=== PATIENT | male | born 1960 | race Caucasian/White ===

== ENCOUNTER 2018-10-03 07:06 | Inpatient (IN) | payer OTHER ==
[~2018-10-03] VITALS: Ht 177.8 cm; Wt 95.5 kg
[~2018-10-03 07:06] MED LIST: ALBU8.5H8 IH; ASPI-4 PO; BUDE10.2 INH; LISI10TA4 PO; METO100T7 PO; MIRT45TA83 PO; PRIM50TA PO; SIMV40TA4 PO
[2018-10-03] MEDS ORDERED: albuterol 2.5 MG/3 ML nebule NEB ONE (07:30)
[2018-10-03] MEDS ORDERED: ipratropium/albuterol 3ml nebule NEB ONE (07:30)
--- NOTE | 2018-10-03 07:39 | NUR ---
ekg called for x 2
--- NOTE | 2018-10-03 07:39 | NUR ---
rt at bedside
[2018-10-03 08:03] LABS: BASOPHILS % (AUTO) 0.4 % (0-1); EOSINOPHILS % (AUTO) 0.1 % (0-6); HEMATOCRIT 42.4 % (42.0-52.0); HEMOGLOBIN 14.6 g/dl (14.0-17.9); LYMPHOCYTES # (AUTO) 0.5 X10'3 (1.1-4.8); LYMPHOCYTES % (AUTO) 5.2 % (21-51); MEAN CORPUSCULAR HEMOGLOBIN 32.7 PG (27.0-31.0); MEAN CORPUSCULAR HGB CONC 34.5 g/dL (33.0-36.5); MEAN CORPUSCULAR VOLUME 94.8 FL (78-98); MONOCYTES # (AUTO) 0.5 X10'3 (0-0.9); MONOCYTES % (AUTO) 5.7 % (2-12); NEUTROPHILS # (AUTO) 8.2 X10'3 (1.8-7.7); NEUTROPHILS % (AUTO) 88.6 % (42-75); PLATELET COUNT 242 X10'3 (140-440); RED BLOOD COUNT 4.47 X10'6 (4.70-6.10); RED CELL DISTRIBUTION WIDTH 13.2 % (11.5-14.5); WHITE BLOOD COUNT 9.3 X10'3 (4.5-11.0)
--- NOTE | 2018-10-03 08:15 | NUR ---
ekg requested, tech at bedside
[2018-10-03 08:17] LABS: ALANINE AMINOTRANSFERASE 44 U/L (12-78); ALBUMIN 3.9 G/DL (3.4-5.0); ALBUMIN/GLOBULIN RATIO 1.1 (1.1-1.5); ALKALINE PHOSPHATASE 78 IU/L (46-116); ANION GAP 11 (8-16); ASPARTATE AMINO TRANSFERASE 33 U/L (10-37); BILIRUBIN,TOTAL 0.5 MG/DL (0.1-1.0); BLOOD UREA NITROGEN 7 MG/DL (7-18); BUN/CREATININE RATIO 9.2 (5.4-32.0); CALCIUM 8.2 MG/DL (8.5-10.1); CHLORIDE 86 MMOL/L (99-107); CREATININE 0.76 MG/DL (0.60-1.10); GLUCOSE 84 MG/DL (70-104); POTASSIUM 4.8 MMOL/L (3.5-5.1); TOTAL CARBON DIOXIDE 21.7 MMOL/L (24-32); TOTAL PROTEIN 7.6 G/DL (6.4-8.2); eGFR > 90 ML/MIN
[2018-10-03 08:20] LABS: SODIUM 119 MMOL/L (135-145)
--- NOTE | 2018-10-03 08:39 | NUR ---
BELONGINGS LIST COMPLETE
[2018-10-03] MEDS ORDERED: BUDE10.2 INH (08:45)
[2018-10-03] MEDS ORDERED: LORazepam 2 mg/ml vial IV PRN (09:00)
[2018-10-03] MEDS ORDERED: MAGNESIUM IV SCH (09:00)
[2018-10-03] MEDS ORDERED: potassium Cl 20 mEq SR tablet PO PRN ×2 (09:00)
[2018-10-03] MEDS ORDERED: magnesium 2GM in 50ml NS 50 ML IV PRN (09:00)
[2018-10-03] MEDS ORDERED: THIAMINE IV SCH (09:00)
[2018-10-03] MEDS ORDERED: magnesium Cl slow-release 64mg tablet PO PRN (09:00)
[2018-10-03] MEDS ORDERED: potassium CL 10mEq/100ml bag 100 ML IV PRN ×2 (09:00)
[2018-10-03] MEDS ORDERED: ondansetron/PF 4mg/2ml inj IV PRN (09:00)
[2018-10-03] MEDS ORDERED: magnesium 4gm in 100ml NS 100 ML IV PRN (09:00)
[2018-10-03] MEDS ORDERED: NORMAL SALINE IV SCH (09:00)
[2018-10-03] MEDS ORDERED: METO-384 PO (09:09)
[2018-10-03] MEDS: lisinopril 10 MG tablet PO SCH (10:27)
[2018-10-03] MEDS: aspirin 325mg tablet PO SCH (10:27)
[2018-10-03] MEDS: normal saline 1000ml 1,000 ML IV SCH ×2 (10:36→19:21)
[2018-10-03] MEDS: morphine 2 MG/ML inj. syringe IV PRN ×3 (10:37→20:10)
[2018-10-03] MEDS: ESOMEPRAZOLE 40 MG VIAL IV SCH (10:49)
[2018-10-03] MEDS: MVI, adult No.4 with vit. K 10 ML in dextrose 5% water 500ml 490 ML IV SCH ×2 (10:49)
[2018-10-03] MEDS: primidone 50mg tablet PO SCH (10:59)
[2018-10-03 12:30] VITALS: BP 120/85
[2018-10-03] MEDS: K and/or MAG REPLACEMENT MC SCH (12:37)
[2018-10-03] MEDS ORDERED: pneumococcal 23-VAL P-sac vacc 25 mcg/0.5ml vial IMVAC ONE (14:15)
[2018-10-03 18:00] VITALS: BP 111/83
--- NOTE | 2018-10-03 18:55 | NUR ---
Problems reprioritized. Patient report given, questions answered & plan of care reviewed with RIMMA Escobedo.
--- NOTE | 2018-10-03 18:57 | NUR ---
Patient in room ORTHO 4023. I have received report from RIMMA Teixeira and had the opportunity to ask questions and assume patient care. Patient is A&O x3, appropriate with splint on right lower leg/ankle. Patient is to have surgery tomorrow afternoon with Dr. Garcia, I will continue to monitor.
[2018-10-03] MEDS: mirtazapine 15mg tablet PO SCH (20:08)
[2018-10-03] MEDS: atorvastatin 20mg tablet PO SCH (20:08)
[2018-10-03 22:00] VITALS: BP 127/79
[2018-10-04] VITALS (22 sets, daily range): BP systolic 101–156; BP diastolic 52–98
[2018-10-04] MEDS: morphine 2 MG/ML inj. syringe IV PRN (03:08)
[2018-10-04] MEDS: normal saline 1000ml 1,000 ML IV SCH ×2 (04:12→19:28)
[2018-10-04] MEDS: ipratropium/albuterol 3ml nebule NEB PRN ×2 (04:48→14:16)
[2018-10-04 05:55] LABS: ALBUMIN 3.3 G/DL (3.4-5.0); ANION GAP 8 (8-16); BLOOD UREA NITROGEN 5 MG/DL (7-18); BUN/CREATININE RATIO 7.7 (5.4-32.0); CALCIUM 8.1 MG/DL (8.5-10.1); CHLORIDE 93 MMOL/L (99-107); CREATININE 0.65 MG/DL (0.60-1.10); GLUCOSE 96 MG/DL (70-104); MAGNESIUM 2.1 MG/DL (1.5-2.4); POTASSIUM 4.3 MMOL/L (3.5-5.1); SODIUM 127 MMOL/L (135-145); TOTAL CARBON DIOXIDE 26.5 MMOL/L (24-32); eGFR > 90 ML/MIN
[2018-10-04 05:59] LABS: BASOPHILS % (AUTO) 0.4 % (0-1); EOSINOPHILS % (AUTO) 0.4 % (0-6); HEMATOCRIT 40.2 % (42.0-52.0); HEMOGLOBIN 13.8 g/dl (14.0-17.9); LYMPHOCYTES # (AUTO) 0.8 X10'3 (1.1-4.8); LYMPHOCYTES % (AUTO) 12.8 % (21-51); MEAN CORPUSCULAR HEMOGLOBIN 32.6 PG (27.0-31.0); MEAN CORPUSCULAR HGB CONC 34.3 g/dL (33.0-36.5); MEAN PLATELET VOLUME 7.2 FL (7.4-10.4); MONOCYTES # (AUTO) 0.5 X10'3 (0-0.9); MONOCYTES % (AUTO) 8.7 % (2-12); NEUTROPHILS # (AUTO) 4.9 X10'3 (1.8-7.7); NEUTROPHILS % (AUTO) 77.7 % (42-75); PLATELET COUNT 227 X10'3 (140-440); RED BLOOD COUNT 4.23 X10'6 (4.70-6.10); RED CELL DISTRIBUTION WIDTH 13.4 % (11.5-14.5); WHITE BLOOD COUNT 6.3 X10'3 (4.5-11.0)
--- NOTE | 2018-10-04 06:36 | NUR ---
Problems reprioritized. Patient report given, questions answered & plan of care reviewed with RIMMA Amanda.
[2018-10-04] MEDS: aspirin 325mg tablet PO SCH (08:00)
[2018-10-04] MEDS: metoprolol succinate 25mg (24-HOUR) SR. Tablet PO SCH (10:07)
[2018-10-04] MEDS: MVI, adult No.4 with vit. K 10 ML in dextrose 5% water 500ml 490 ML IV SCH ×2 (10:07)
[2018-10-04] MEDS: lisinopril 10 MG tablet PO SCH (10:08)
[2018-10-04] MEDS ORDERED: ringers solution, lacted 1,000 ML IV SCH (10:12)
[2018-10-04] MEDS ORDERED: proCHLORperazine 10 MG/2 ml inj IV PRN (10:15)
[2018-10-04] MEDS ORDERED: meperidine/PF 25mg/ml syringe IV PRN ×3 (10:15)
[2018-10-04] MEDS ORDERED: ondansetron/PF 4mg/2ml inj IV PRN (10:15)
[2018-10-04] MEDS ORDERED: morphine 4 MG/ML inj SYRINge IV PRN ×2 (10:15)
[2018-10-04] MEDS: primidone 50mg tablet PO SCH (10:18)
[2018-10-04] MEDS: ESOMEPRAZOLE 40 MG VIAL IV SCH (10:19)
[2018-10-04] MEDS ORDERED: ceFAZolin 1000mg inj ONE (10:41)
[2018-10-04] MEDS ORDERED: ipratropium/albuterol 3ml nebule IH ONE (11:05)
[2018-10-04] MEDS ORDERED: ePHEDrine 50MG/ML INJ. ONE (11:12)
[2018-10-04] MEDS ORDERED: MIDAZolam 5mg/5ml vial ONE (11:25)
[2018-10-04] MEDS ORDERED: fentaNYL/PF 50MCG/1 ML 2ML syringe ONE (11:25)
[2018-10-04] MEDS ORDERED: ceFAZolin 1GM/D5W- ADD-VANTAGE 50 ML IV ONE (12:00)
--- NOTE | 2018-10-04 12:58 | NUR ---
Received from OR via , accompanied by DR. CANDELARIO, Anesthesiologist and report given by Anesthesiolgist. S/P ORIF RT. ANKLE W/SPINAL ANESTHESIA & POPLITEAL BLOCK. PT. PT. A X O X 4. APPROP. RESPS. EVEN & UNLABORED. SL. EXP. WHEEZE PRESENT. PT. DENIES SOB. DR. CANDELARIO AWARE @ BEDSIDE. PT. DENIES PAIN. RT. LOWER LEG SPLINT IN TACT. RT. TOES PINK, WARM W/ GOOD CAP REFILL. RT. ARM IV PATENT. PT. REASSURED.
--- NOTE | 2018-10-04 18:34 | NUR ---
Problems reprioritized. Patient report given, questions answered & plan of care reviewed with Fanny Lares
[2018-10-04] MEDS: atorvastatin 20mg tablet PO SCH (21:05)
[2018-10-04] MEDS: mirtazapine 15mg tablet PO SCH (21:05)
[2018-10-04] MEDS: ceFAZolin 1GM/D5W- ADD-VANTAGE 50 ML IV SCH (23:58)
[2018-10-05] MEDS ORDERED: ceFAZolin 1GM/D5W- ADD-VANTAGE 50 ML IV SCH
[2018-10-05] MEDS: normal saline 1000ml 1,000 ML IV SCH ×3 (01:00→21:00)
[2018-10-05 02:00] VITALS: BP 94/61
[2018-10-05 05:23] LABS: ALBUMIN 2.7 G/DL (3.4-5.0); ANION GAP 4 (8-16); BLOOD UREA NITROGEN 4 MG/DL (7-18); BUN/CREATININE RATIO 5.8 (5.4-32.0); CALCIUM 7.8 MG/DL (8.5-10.1); CHLORIDE 100 MMOL/L (99-107); CREATININE 0.69 MG/DL (0.60-1.10); GLUCOSE 104 MG/DL (70-104); MAGNESIUM 1.8 MG/DL (1.5-2.4); POTASSIUM 4.8 MMOL/L (3.5-5.1); SODIUM 132 MMOL/L (135-145); TOTAL CARBON DIOXIDE 28.4 MMOL/L (24-32); eGFR > 90 ML/MIN
[2018-10-05] MEDS: ipratropium/albuterol 3ml nebule NEB PRN ×2 (05:27→14:14)
[2018-10-05 05:32] LABS: BASOPHILS % (AUTO) 0.3 % (0-1); EOSINOPHILS % (AUTO) 0.1 % (0-6); HEMATOCRIT 37.4 % (42.0-52.0); HEMOGLOBIN 12.8 g/dl (14.0-17.9); LYMPHOCYTES # (AUTO) 0.6 X10'3 (1.1-4.8); LYMPHOCYTES % (AUTO) 8.6 % (21-51); MEAN CORPUSCULAR HEMOGLOBIN 32.8 PG (27.0-31.0); MEAN CORPUSCULAR HGB CONC 34.2 g/dL (33.0-36.5); MEAN CORPUSCULAR VOLUME 95.7 FL (78-98); MEAN PLATELET VOLUME 7.3 FL (7.4-10.4); MONOCYTES # (AUTO) 0.7 X10'3 (0-0.9); MONOCYTES % (AUTO) 9.6 % (2-12); NEUTROPHILS # (AUTO) 5.6 X10'3 (1.8-7.7); NEUTROPHILS % (AUTO) 81.4 % (42-75); PLATELET COUNT 182 X10'3 (140-440); RED BLOOD COUNT 3.91 X10'6 (4.70-6.10); RED CELL DISTRIBUTION WIDTH 13.7 % (11.5-14.5); WHITE BLOOD COUNT 6.9 X10'3 (4.5-11.0)
[2018-10-05 06:10] VITALS: BP 157/97
--- NOTE | 2018-10-05 06:21 | NUR ---
Problems reprioritized. Patient report given, questions answered & plan of care reviewed with RIMMA Rivers.
--- NOTE | 2018-10-05 06:26 | NUR ---
Patient in room ORTHO 4023. I have received report from Tash SHANKS and had the opportunity to ask questions and assume patient care.
[2018-10-05] MEDS: K and/or MAG REPLACEMENT MC SCH (08:00)
[2018-10-05] MEDS: primidone 50mg tablet PO SCH (08:05)
[2018-10-05] MEDS: ceFAZolin 1GM/D5W- ADD-VANTAGE 50 ML IV SCH (08:05)
[2018-10-05] MEDS: aspirin 325mg tablet PO SCH (08:05)
[2018-10-05] MEDS: lisinopril 10 MG tablet PO SCH (08:06)
[2018-10-05] MEDS: multivitamins, therapeutics tablet PO SCH (08:06)
[2018-10-05] MEDS: metoprolol succinate 25mg (24-HOUR) SR. Tablet PO SCH (08:06)
[2018-10-05] MEDS: thiamine 100mg tablet PO SCH (08:06)
[2018-10-05] MEDS: pantoprazole 40mg Tablet.DR PO SCH (08:07)
[2018-10-05 10:00] VITALS: BP 121/68
[2018-10-05] MEDS ORDERED: LIDOcaine 2% (20mg/ml) 5ml vial ONE (10:38)
[2018-10-05] MEDS ORDERED: ondansetron/PF 4mg/2ml inj ONE (10:38)
[2018-10-05] MEDS ORDERED: glycopyrrolate 0.2mg/ml inj ONE (10:38)
[2018-10-05] MEDS ORDERED: rocuronium 10mg/ml inj IV ONE (10:38)
[2018-10-05] MEDS ORDERED: neostigmine methylsulfate 1 MG/ML 10ml vial ONE (10:38)
[2018-10-05] MEDS ORDERED: propofol inj 20 ML IV ONE (10:38)
[2018-10-05] MEDS ORDERED: dexamethasone sod phosphate 4mg/ml inj. ONE (10:39)
[2018-10-05] MEDS ORDERED: fentaNYL/PF 50MCG/1 ML 2ML syringe ONE (10:56)
[2018-10-05] MEDS ORDERED: midazolam 2 mg/2 ml injection ONE (10:56)
[2018-10-05] MEDS ORDERED: heparin 1,000unit/ml 10ml vial 10 ML ONE (11:24)
[2018-10-05] MEDS ORDERED: ceFAZolin 1000mg inj ONE ×2 (11:28)
[2018-10-05 18:00] VITALS: BP 125/84
--- NOTE | 2018-10-05 18:28 | NUR ---
Patient report given to Fanny Peck RN
[2018-10-05] MEDS: atorvastatin 20mg tablet PO SCH (20:26)
[2018-10-05] MEDS: mirtazapine 15mg tablet PO SCH (20:26)
[2018-10-05] MEDS: HYDROcodone/acetaminophen 10/325mg tab PO PRN (21:55)
[2018-10-05 22:18] VITALS: BP 128/85
[2018-10-06] MEDS: normal saline 1000ml 1,000 ML IV SCH ×2 (00:37→10:51)
[2018-10-06] MEDS: HYDROcodone/acetaminophen 10/325mg tab PO PRN ×3 (05:24→21:41)
[2018-10-06] MEDS: ipratropium/albuterol 3ml nebule NEB PRN ×3 (05:34→20:51)
--- NOTE | 2018-10-06 06:04 | NUR ---
Problems reprioritized. Patient report given, questions answered & plan of care reviewed with RIMMA Rivers.
[2018-10-06 06:10] VITALS: BP 123/78
[2018-10-06 06:27] LABS: ALBUMIN 2.6 G/DL (3.4-5.0); ANION GAP 2 (8-16); BLOOD UREA NITROGEN 5 MG/DL (7-18); BUN/CREATININE RATIO 5.7 (5.4-32.0); CALCIUM 8.1 MG/DL (8.5-10.1); CHLORIDE 102 MMOL/L (99-107); CREATININE 0.88 MG/DL (0.60-1.10); GLUCOSE 91 MG/DL (70-104); MAGNESIUM 1.5 MG/DL (1.5-2.4); POTASSIUM 4.4 MMOL/L (3.5-5.1); SODIUM 136 MMOL/L (135-145); eGFR 89 ML/MIN
[2018-10-06 06:30] LABS: BASOPHILS % (AUTO) 0.6 % (0-1); EOSINOPHILS # (AUTO) 0.1 X10'3 (0-0.9); EOSINOPHILS % (AUTO) 2.3 % (0-6); HEMATOCRIT 36.5 % (42.0-52.0); HEMOGLOBIN 12.3 g/dl (14.0-17.9); LYMPHOCYTES % (AUTO) 16.2 % (21-51); MEAN CORPUSCULAR HEMOGLOBIN 32.9 PG (27.0-31.0); MEAN CORPUSCULAR HGB CONC 33.6 g/dL (33.0-36.5); MEAN CORPUSCULAR VOLUME 97.9 FL (78-98); MEAN PLATELET VOLUME 7.2 FL (7.4-10.4); MONOCYTES # (AUTO) 0.7 X10'3 (0-0.9); MONOCYTES % (AUTO) 10.5 % (2-12); NEUTROPHILS # (AUTO) 4.5 X10'3 (1.8-7.7); NEUTROPHILS % (AUTO) 70.4 % (42-75); PLATELET COUNT 165 X10'3 (140-440); RED BLOOD COUNT 3.73 X10'6 (4.70-6.10); RED CELL DISTRIBUTION WIDTH 13.6 % (11.5-14.5); WHITE BLOOD COUNT 6.4 X10'3 (4.5-11.0)
--- NOTE | 2018-10-06 06:30 | NUR ---
Patient in room ORTHO 4023. I have received report from Fanny SHANKS and had the opportunity to ask questions and assume patient care.
[2018-10-06] MEDS: K and/or MAG REPLACEMENT MC SCH (08:00)
[2018-10-06] MEDS: lisinopril 10 MG tablet PO SCH (08:10)
[2018-10-06] MEDS: aspirin 325mg tablet PO SCH (08:10)
[2018-10-06] MEDS: enoxaparin 40mg/0.4ml syringe SUBCUT SCH (08:10)
[2018-10-06] MEDS: multivitamins, therapeutics tablet PO SCH (08:11)
[2018-10-06] MEDS: pantoprazole 40mg Tablet.DR PO SCH (08:11)
[2018-10-06] MEDS: metoprolol succinate 25mg (24-HOUR) SR. Tablet PO SCH (08:11)
[2018-10-06] MEDS: primidone 50mg tablet PO SCH (08:11)
[2018-10-06] MEDS: thiamine 100mg tablet PO SCH (08:11)
[2018-10-06 10:00] VITALS: BP 158/86
[2018-10-06 18:00] VITALS: BP 187/89
--- NOTE | 2018-10-06 18:34 | NUR ---
I gave patient report to Fanny Peck RN
[2018-10-06] MEDS: atorvastatin 20mg tablet PO SCH (20:32)
[2018-10-06] MEDS: mirtazapine 15mg tablet PO SCH (20:32)
[2018-10-06 22:08] VITALS: BP 121/84
[2018-10-07] MEDS: normal saline 1000ml 1,000 ML IV SCH (03:36)
[2018-10-07 06:19] LABS: ALBUMIN 2.5 G/DL (3.4-5.0); ANION GAP 5 (8-16); BLOOD UREA NITROGEN 8 MG/DL (7-18); BUN/CREATININE RATIO 11.9 (5.4-32.0); CALCIUM 8.2 MG/DL (8.5-10.1); CHLORIDE 100 MMOL/L (99-107); CREATININE 0.67 MG/DL (0.60-1.10); GLUCOSE 92 MG/DL (70-104); MAGNESIUM 1.4 MG/DL (1.5-2.4); POTASSIUM 4.2 MMOL/L (3.5-5.1); SODIUM 137 MMOL/L (135-145); TOTAL CARBON DIOXIDE 31.9 MMOL/L (24-32); eGFR > 90 ML/MIN
--- NOTE | 2018-10-07 06:34 | NUR ---
Problems reprioritized. Patient report given, questions answered & plan of care reviewed with RIMMA Amanda.
[2018-10-07 07:10] LABS: BASOPHILS % (AUTO) 0.7 % (0-1); EOSINOPHILS # (AUTO) 0.2 X10'3 (0-0.9); EOSINOPHILS % (AUTO) 4.7 % (0-6); HEMATOCRIT 36.2 % (42.0-52.0); HEMOGLOBIN 12.3 g/dl (14.0-17.9); LYMPHOCYTES # (AUTO) 0.8 X10'3 (1.1-4.8); LYMPHOCYTES % (AUTO) 15.4 % (21-51); MEAN CORPUSCULAR HEMOGLOBIN 32.8 PG (27.0-31.0); MEAN CORPUSCULAR HGB CONC 33.9 g/dL (33.0-36.5); MEAN CORPUSCULAR VOLUME 96.6 FL (78-98); MEAN PLATELET VOLUME 7.3 FL (7.4-10.4); MONOCYTES # (AUTO) 0.6 X10'3 (0-0.9); MONOCYTES % (AUTO) 11.9 % (2-12); NEUTROPHILS # (AUTO) 3.6 X10'3 (1.8-7.7); NEUTROPHILS % (AUTO) 67.3 % (42-75); PLATELET COUNT 184 X10'3 (140-440); RED BLOOD COUNT 3.74 X10'6 (4.70-6.10); RED CELL DISTRIBUTION WIDTH 13.4 % (11.5-14.5); WHITE BLOOD COUNT 5.3 X10'3 (4.5-11.0)
[2018-10-07 08:00] VITALS: BP 113/76
[2018-10-07] MEDS: K and/or MAG REPLACEMENT MC SCH (08:00)
[2018-10-07] MEDS: aspirin 325mg tablet PO SCH (09:48)
[2018-10-07] MEDS: enoxaparin 40mg/0.4ml syringe SUBCUT SCH (09:48)
[2018-10-07] MEDS: multivitamins, therapeutics tablet PO SCH (09:48)
[2018-10-07] MEDS: pantoprazole 40mg Tablet.DR PO SCH (09:48)
[2018-10-07] MEDS: metoprolol succinate 25mg (24-HOUR) SR. Tablet PO SCH (09:49)
[2018-10-07] MEDS: HYDROcodone/acetaminophen 10/325mg tab PO PRN ×2 (09:49→20:34)
[2018-10-07] MEDS: primidone 50mg tablet PO SCH (09:49)
[2018-10-07] MEDS: thiamine 100mg tablet PO SCH (09:49)
[2018-10-07] MEDS: lisinopril 10 MG tablet PO SCH (09:55)
[2018-10-07 10:00] VITALS: BP 132/91
[2018-10-07] MEDS: ipratropium/albuterol 3ml nebule NEB PRN (17:22)
--- NOTE | 2018-10-07 18:24 | NUR ---
Problems reprioritized. Patient report given, questions answered & plan of care reviewed with Neto SHANKS.
[2018-10-07 19:00] VITALS: BP 145/105
[2018-10-07] MEDS: mirtazapine 15mg tablet PO SCH (20:33)
[2018-10-07] MEDS: atorvastatin 20mg tablet PO SCH (20:35)
[2018-10-07 23:00] VITALS: BP 122/82
[2018-10-08 06:00] VITALS: BP 120/83
[2018-10-08 07:13] LABS: BASOPHILS % (AUTO) 0.3 % (0-1); EOSINOPHILS # (AUTO) 0.3 X10'3 (0-0.9); EOSINOPHILS % (AUTO) 4.9 % (0-6); HEMATOCRIT 36.9 % (42.0-52.0); HEMOGLOBIN 12.6 g/dl (14.0-17.9); LYMPHOCYTES # (AUTO) 0.8 X10'3 (1.1-4.8); LYMPHOCYTES % (AUTO) 14.2 % (21-51); MEAN CORPUSCULAR HEMOGLOBIN 32.9 PG (27.0-31.0); MEAN CORPUSCULAR HGB CONC 34.2 g/dL (33.0-36.5); MEAN CORPUSCULAR VOLUME 96.2 FL (78-98); MONOCYTES # (AUTO) 0.6 X10'3 (0-0.9); NEUTROPHILS # (AUTO) 3.9 X10'3 (1.8-7.7); NEUTROPHILS % (AUTO) 69.6 % (42-75); PLATELET COUNT 198 X10'3 (140-440); RED BLOOD COUNT 3.84 X10'6 (4.70-6.10); RED CELL DISTRIBUTION WIDTH 13.5 % (11.5-14.5); WHITE BLOOD COUNT 5.6 X10'3 (4.5-11.0)
[2018-10-08 07:14] LABS: ALBUMIN 2.6 G/DL (3.4-5.0); ANION GAP 7 (8-16); BLOOD UREA NITROGEN 6 MG/DL (7-18); BUN/CREATININE RATIO 9.4 (5.4-32.0); CALCIUM 8.4 MG/DL (8.5-10.1); CHLORIDE 99 MMOL/L (99-107); CREATININE 0.64 MG/DL (0.60-1.10); GLUCOSE 74 MG/DL (70-104); MAGNESIUM 1.5 MG/DL (1.5-2.4); SODIUM 137 MMOL/L (135-145); TOTAL CARBON DIOXIDE 31.3 MMOL/L (24-32); eGFR > 90 ML/MIN
[2018-10-08] MEDS: K and/or MAG REPLACEMENT MC SCH (08:05)
[2018-10-08] MEDS: enoxaparin 40mg/0.4ml syringe SUBCUT SCH (08:11)
[2018-10-08] MEDS: aspirin 325mg tablet PO SCH (08:11)
[2018-10-08] MEDS: lisinopril 10 MG tablet PO SCH (08:11)
[2018-10-08] MEDS: metoprolol succinate 25mg (24-HOUR) SR. Tablet PO SCH (08:11)
[2018-10-08] MEDS: thiamine 100mg tablet PO SCH (08:11)
[2018-10-08] MEDS: primidone 50mg tablet PO SCH (08:12)
[2018-10-08] MEDS: pantoprazole 40mg Tablet.DR PO SCH (08:12)
[2018-10-08] MEDS: multivitamins, therapeutics tablet PO SCH (08:12)
[2018-10-08] MEDS: ipratropium/albuterol 3ml nebule NEB PRN (09:38)
[2018-10-08 10:20] VITALS: BP 146/102
--- NOTE | 2018-10-08 12:07 | NUR ---
Initial: Pt s/p fibula fx repair. Pt s/p fall w/ hx heavy etoh now decreased to once case beer/week per pt in ER note. Receiving MVI/thiamin. PO 75-100% meals meeting needs. LBM 10/05. No nutrition concerns at this time. Rec: 1. continue heart healthy diet 2. MVI/thiamin for etoh/wound healing 3. wt per rx Addendum: 10/08/18 at [address] Amended: Links added.
[2018-10-08] MEDS: HYDROcodone/acetaminophen 10/325mg tab PO PRN ×2 (13:52→20:20)
[2018-10-08 17:00] VITALS: BP 121/82
--- NOTE | 2018-10-08 18:31 | NUR ---
Problems reprioritized. Patient report given, questions answered & plan of care reviewed with Katy SHANKS.
--- NOTE | 2018-10-08 18:32 | NUR ---
Patient in room ORTHO 4023. I have received report from Treasure SHANKS and had the opportunity to ask questions and assume patient care.
[2018-10-08] MEDS: atorvastatin 20mg tablet PO SCH (20:20)
[2018-10-08] MEDS: mirtazapine 15mg tablet PO SCH (20:20)
[2018-10-08 22:00] VITALS: BP 117/80
[2018-10-09] MEDS: HYDROcodone/acetaminophen 10/325mg tab PO PRN ×2 (05:10→10:58)
[2018-10-09 06:00] VITALS: BP 113/76
--- NOTE | 2018-10-09 06:26 | NUR ---
Problems reprioritized. Patient report given, questions answered & plan of care reviewed with Rachel SHANKS.
[2018-10-09] MEDS: K and/or MAG REPLACEMENT MC SCH (08:00)
[2018-10-09] MEDS: metoprolol succinate 25mg (24-HOUR) SR. Tablet PO SCH (08:05)
[2018-10-09] MEDS: thiamine 100mg tablet PO SCH (08:05)
[2018-10-09] MEDS: multivitamins, therapeutics tablet PO SCH (08:05)
[2018-10-09] MEDS: primidone 50mg tablet PO SCH (08:05)
[2018-10-09] MEDS: aspirin 325mg tablet PO SCH (08:05)
[2018-10-09] MEDS: pantoprazole 40mg Tablet.DR PO SCH (08:06)
[2018-10-09 08:08] VITALS: BP_SYST 113
[2018-10-09] MEDS: lisinopril 10 MG tablet PO SCH (08:08)
[2018-10-09] MEDS: enoxaparin 40mg/0.4ml syringe SUBCUT SCH (08:09)
== END 2018-10-09 12:50 | DRG 493 ==
LOC: ER 07:06 → EDBEDREQSVC 10:09 → ORTHO 4S 11:32 → CMPBEDREQ 19:41
PROVIDERS: ADMIT Internal Medicine; ATTEND Hospitalist
PROC: 3E0234Z Introduction of Serum, Toxoid and Vaccine into Muscle, Percutaneous Approach (ICD-10-PCS; 2018-10-03)
PROC: 2W3QX1Z Immobilization of Right Lower Leg using Splint (ICD-10-PCS; 2018-10-03)
PROC: 3E0T3BZ Introduction of Anesthetic Agent into Peripheral Nerves and Plexi, Percutaneous Approach (ICD-10-PCS; 2018-10-04)
PROC: 0QSJ04Z Reposition Right Fibula with Internal Fixation Device, Open Approach (ICD-10-PCS; principal; 2018-10-04 11:12)
DX: S82.831A Other fracture of upper and lower end of right fibula, initial encounter for closed fracture (principal); E87.1 Hypo-osmolality and hyponatremia; L97.329 Non-pressure chronic ulcer of left ankle with unspecified severity; F10.29 Alcohol dependence with unspecified alcohol-induced disorder; S40.011A Contusion of right shoulder, initial encounter; E78.00 Pure hypercholesterolemia, unspecified; E78.5 Hyperlipidemia, unspecified; I10 Essential (primary) hypertension; F17.210 Nicotine dependence, cigarettes, uncomplicated; R07.9 Chest pain, unspecified; J44.9 Chronic obstructive pulmonary disease, unspecified; W18.39XA Other fall on same level, initial encounter; Y93.89 Activity, other specified; Y92.89 Other specified places as the place of occurrence of the external cause; Y99.8 Other external cause status; Z79.51 Long term (current) use of inhaled steroids; Z23 Encounter for immunization; Z79.82 Long term (current) use of aspirin; Z81.1 Family history of alcohol abuse and dependence; Z82.49 Family history of ischemic heart disease and other diseases of the circulatory system; Z83.3 Family history of diabetes mellitus; Z79.899 Other long term (current) drug therapy
CPT/HCPCS: 29515; 36415; 71045; 73030; 73610; 80048; 80053; 83735; 85025; 87070; 87081; 93005; 94640; 94760; 96365; 96368; 96375; 97110; 97116; 97161; 97530; 99285; A4215; A4338; A4618; A6449; A7000; C1713; G0378; J0690; J1100; J1644; J1650; J2001; J2250; J2270; J2405; J2704; J2710; J3010; J3370; J3411; J3475; J3490; J7030; J7060; J7120

== ENCOUNTER 2018-10-17 06:42 | Observation (INO) | payer OTHER ==
[~2018-10-17] VITALS: Ht 177.8 cm; Wt 102.0 kg
[~2018-10-17 06:42] MED LIST changes: +METO-384 PO; -METO100T7 PO
[2018-10-17 07:43] LABS: ALANINE AMINOTRANSFERASE 70 U/L (12-78); ALBUMIN 2.1 G/DL (3.4-5.0); ALBUMIN/GLOBULIN RATIO 0.4 (1.1-1.5); ALKALINE PHOSPHATASE 86 IU/L (46-116); ANION GAP 9 (8-16); ASPARTATE AMINO TRANSFERASE 40 U/L (10-37); BILIRUBIN,TOTAL 0.4 MG/DL (0.1-1.0); BLOOD UREA NITROGEN 12 MG/DL (7-18); BUN/CREATININE RATIO 16.4 (5.4-32.0); CALCIUM 8.3 MG/DL (8.5-10.1); CHLORIDE 92 MMOL/L (99-107); CREATININE 0.73 MG/DL (0.60-1.10); GLUCOSE 120 MG/DL (70-104); POTASSIUM 4.6 MMOL/L (3.5-5.1); SODIUM 125 MMOL/L (135-145); TOTAL CARBON DIOXIDE 24.5 MMOL/L (24-32); TOTAL PROTEIN 7.2 G/DL (6.4-8.2); eGFR > 90 ML/MIN
[2018-10-17 07:45] LABS: BASOPHILS % (AUTO) 0.4 % (0-1); EOSINOPHILS # (AUTO) 0.1 X10'3 (0-0.9); EOSINOPHILS % (AUTO) 1.2 % (0-6); HEMATOCRIT 38.3 % (42.0-52.0); HEMOGLOBIN 12.9 g/dl (14.0-17.9); LYMPHOCYTES # (AUTO) 0.6 X10'3 (1.1-4.8); LYMPHOCYTES % (AUTO) 5.5 % (21-51); MEAN CORPUSCULAR HEMOGLOBIN 32.1 PG (27.0-31.0); MEAN CORPUSCULAR HGB CONC 33.8 g/dL (33.0-36.5); MEAN PLATELET VOLUME 7.3 FL (7.4-10.4); MONOCYTES # (AUTO) 0.5 X10'3 (0-0.9); MONOCYTES % (AUTO) 5.1 % (2-12); NEUTROPHILS # (AUTO) 9.2 X10'3 (1.8-7.7); NEUTROPHILS % (AUTO) 87.8 % (42-75); PLATELET COUNT 366 X10'3 (140-440); RED BLOOD COUNT 4.03 X10'6 (4.70-6.10); RED CELL DISTRIBUTION WIDTH 13.2 % (11.5-14.5); WHITE BLOOD COUNT 10.5 X10'3 (4.5-11.0)
[2018-10-17 07:49] LABS: MAGNESIUM 1.7 MG/DL (1.5-2.4)
[2018-10-17 08:06] LABS: D-DIMER 2.46 MG/L FEU (0-0.50)
[2018-10-17] MEDS ORDERED: nitroGLYCERIN 0.4mg/hour patch TD ONE (08:35)
--- NOTE | 2018-10-17 08:50 | NUR ---
ct ou to ct via wheelchair with product developer
--- NOTE | 2018-10-17 09:12 | NUR ---
CT called and stated field start PIV not flushing. Placed new PIV, please see intervention.
--- NOTE | 2018-10-17 09:30 | NUR ---
Pt returned from CT. Denies CT or SOB. VSS. Awaiting CTA results. Will continue to monitor.
[2018-10-17] MEDS ORDERED: iohexol 350MG/ML 100ml bottle IV ONE (09:58)
[2018-10-17] MEDS ORDERED: acetaminophen 325mg tablet PO PRN (10:40)
[2018-10-17] MEDS ORDERED: mag hydrox/Alum hydrox/simeth 30ml oral suspension PO PRN (10:40)
[2018-10-17] MEDS ORDERED: magnesium hydroxide 30ml (MOM) UD suspension PO PRN ×2 (10:40→15:30)
[2018-10-17] MEDS ORDERED: ondansetron/PF 4mg/2ml inj IV PRN (10:40)
[2018-10-17] MEDS ORDERED: morphine 2 MG/ML inj. syringe IV PRN ×2 (10:40)
[2018-10-17] MEDS ORDERED: ATOR20TA PO (10:49)
[2018-10-17] MEDS: normal saline 1000ml 1,000 ML IV SCH ×2 (10:59→21:09)
[2018-10-17 11:00] VITALS: BP 124/86
[2018-10-17] MEDS ORDERED: MV-M1TAB2 PO (11:04)
[2018-10-17] MEDS ORDERED: ATR0.5NEB IH (11:04)
[2018-10-17] MEDS ORDERED: BISA10SU11 RC (11:04)
[2018-10-17] MEDS ORDERED: MAGN400O6 PO (11:04)
[2018-10-17] MEDS ORDERED: ALB0.5UD IH (11:12)
[2018-10-17] MEDS ORDERED: PRIM250T8 (11:12)
[2018-10-17] MEDS ORDERED: HYDR-4353 PO (11:12)
[2018-10-17] MEDS ORDERED: BUDE10.2 INH (11:12)
[2018-10-17] MEDS ORDERED: NA P133E4 RC (11:12)
--- NOTE | 2018-10-17 11:25 | NUR ---
Report called to receiving nurse. US study in progress, will transport when completed.
--- NOTE | 2018-10-17 11:31 | NUR ---
I have received report from Stella SHANKS and had the opportunity to ask questions and assume patient care. Awaiting patient arrival to U 3023C.
--- NOTE | 2018-10-17 11:40 | NUR ---
Patient arrived to PCU 3023A on ED gurcuttyhunk. Patient transferred to self to hospital bed with no minimal assistance. Patient vital signs: Temp: 99, HR 103, RR: 18, O2 89% on room air, BP 124/86l. Pain 5/10. Patient oriented to room and to call light. Telemetry monitoring initiated. Patient has no complaints at this time. All immediate needs met.
[2018-10-17 15:00] VITALS: BP 127/79
[2018-10-17] MEDS ORDERED: albuterol 2.5 mg/0.5ml nebule NEB PRN (15:30)
[2018-10-17] MEDS ORDERED: bisacodyl 10mg suppository rectal RC PRN (15:30)
[2018-10-17] MEDS ORDERED: primidone 50mg tablet PO PRN (15:30)
[2018-10-17] MEDS ORDERED: NA PHOS M B RC PRN (15:30)
[2018-10-17] MEDS ORDERED: NA PHOS DI BA RC PRN (15:30)
[2018-10-17] MEDS ORDERED: aminophylline 250mg/10ml inj. IV PRN (15:35)
[2018-10-17] MEDS ORDERED: metoprolol tartrate 1mg/ml inj IV PRN (15:35)
[2018-10-17] MEDS ORDERED: nitroGLYCERIN 0.4mg SUBLingual tab SL PRN (15:35)
[2018-10-17] MEDS ORDERED: regadenoson 0.4mg/5ml syringe IV ONE (15:35)
[2018-10-17] MEDS ORDERED: albuterol 2.5 MG/3 ML nebule NEB PRN (15:53)
--- NOTE | 2018-10-17 18:53 | NUR ---
Patient in room PCU 3023a. I have received report from RIMMA Hill and had the opportunity to ask questions and assume patient care. Patient asleep for bedside report and is stable at this time. 20 G L AC with NS infusing at 100 mL/hr per provider order. Will continue to monitor closely.
--- NOTE | 2018-10-17 18:53 | NUR ---
Problems reprioritized. Patient report given, questions answered & plan of care reviewed with Juan Antonio SHANKS. Patient stable at time of care.
[2018-10-17 19:00] VITALS: BP 122/77
[2018-10-17] MEDS: pantoprazole 40mg Tablet.DR PO SCH (20:58)
[2018-10-17] MEDS: atorvastatin 20mg tablet PO SCH (20:58)
[2018-10-17] MEDS: mirtazapine 15mg tablet PO SCH (20:58)
[2018-10-17] MEDS: heparin, porcine 5000 units/ml vial SQ SCH (20:59)
[2018-10-17] MEDS: HYDROcodone/acetaminophen 10/325mg tab PO PRN (21:10)
[2018-10-17] MEDS: budesonide 0.5mg/2ml UD nebule IH SCH (21:28)
[2018-10-17] MEDS: ipratropium 0.5 MG/2.5ML nebule IH SCH (21:41)
[2018-10-17 23:00] VITALS: BP 109/73
[2018-10-18] VITALS (13 sets, daily range): BP systolic 98–130; BP diastolic 66–85
[2018-10-18] MEDS: ipratropium 0.5 MG/2.5ML nebule IH SCH ×7 (00:07→23:29)
[2018-10-18 05:20] LABS: BASOPHILS % (AUTO) 0.5 % (0-1); EOSINOPHILS # (AUTO) 0.1 X10'3 (0-0.9); EOSINOPHILS % (AUTO) 1.8 % (0-6); HEMATOCRIT 37.4 % (42.0-52.0); HEMOGLOBIN 12.5 g/dl (14.0-17.9); LYMPHOCYTES # (AUTO) 0.9 X10'3 (1.1-4.8); LYMPHOCYTES % (AUTO) 15.5 % (21-51); MEAN CORPUSCULAR HEMOGLOBIN 32.1 PG (27.0-31.0); MEAN CORPUSCULAR HGB CONC 33.4 g/dL (33.0-36.5); MONOCYTES # (AUTO) 0.5 X10'3 (0-0.9); MONOCYTES % (AUTO) 8.8 % (2-12); NEUTROPHILS # (AUTO) 4.2 X10'3 (1.8-7.7); NEUTROPHILS % (AUTO) 73.4 % (42-75); PLATELET COUNT 358 X10'3 (140-440); RED CELL DISTRIBUTION WIDTH 13.5 % (11.5-14.5); WHITE BLOOD COUNT 5.7 X10'3 (4.5-11.0)
[2018-10-18 05:36] LABS: ANION GAP 8 (8-16); BLOOD UREA NITROGEN 7 MG/DL (7-18); BUN/CREATININE RATIO 9.3 (5.4-32.0); CALCIUM 8.3 MG/DL (8.5-10.1); CHLORIDE 102 MMOL/L (99-107); CREATININE 0.75 MG/DL (0.60-1.10); GLUCOSE 91 MG/DL (70-104); POTASSIUM 4.1 MMOL/L (3.5-5.1); SODIUM 138 MMOL/L (135-145); TOTAL CARBON DIOXIDE 28.3 MMOL/L (24-32); eGFR > 90 ML/MIN
--- NOTE | 2018-10-18 06:15 | NUR ---
Problems reprioritized. Patient report given, questions answered & plan of care reviewed with RIMMA Hill.
--- NOTE | 2018-10-18 06:49 | NUR ---
Patient in room PCU 3023A. I have received report from RIMMA Romano and had the opportunity to ask questions and assume patient care. Pt sleeping at this time, no distress noted.
--- NOTE | 2018-10-18 06:49 | NUR ---
Patient in room PCU 3023. I have received report from Juan Antonio SHANKS and had the opportunity to ask questions and assume patient care. Patient asleep in bed. In no acute distress. Will continue to monitor.
[2018-10-18] MEDS: budesonide 0.5mg/2ml UD nebule IH SCH ×2 (07:14→19:22)
[2018-10-18] MEDS: heparin, porcine 5000 units/ml vial SQ SCH ×2 (08:00→20:50)
[2018-10-18] MEDS: normal saline 1000ml 1,000 ML IV SCH ×2 (08:04→21:30)
--- NOTE | 2018-10-18 10:58 | NUR ---
Notified by [facility] that pt needs Trop series, new orders from Dr. Vargas. Hank stress to be done this afternoon, pt needs to remain NPO.
[2018-10-18] MEDS: HYDROcodone/acetaminophen 10/325mg tab PO PRN ×2 (11:59→20:51)
[2018-10-18] MEDS: pantoprazole 40mg Tablet.DR PO SCH (15:43)
[2018-10-18] MEDS: aspirin 325mg tablet PO SCH (15:43)
[2018-10-18] MEDS: lisinopril 10 MG tablet PO SCH (15:44)
[2018-10-18] MEDS: metoprolol succinate 25mg (24-HOUR) SR. Tablet PO SCH (15:45)
--- NOTE | 2018-10-18 15:51 | NUR ---
Paged Dr. Vargas regarding ellie scan results. PAGER ID: [phone] MESSAGE: Re [id number] José Luis Wheeler. Ellie Scan resulted, negative for ischemia. May we please feed pt? thanks, Treasure [phone]
--- NOTE | 2018-10-18 15:59 | NUR ---
Paged Dr. Vargas: PAGER ID: [phone] MESSAGE: José Luis Wheeler [id number]. Spoke with case management and Sussy Wei will need [facility] from [facility] in order to transfer patient. TEO states it won't happen today and will work on it tomorrow. Liz [facility] [phone]
--- NOTE | 2018-10-18 18:12 | NUR ---
[place]rientee documentation: I have reviewed and agree with all interventions, assessments performed and documented by RIMMA Amanda. [place] Medication Administration: For this medication-pass time frame, all medication were reviewed, dispensed, administered and documented per hospital policy by RIMMA Amanda.
--- NOTE | 2018-10-18 18:25 | NUR ---
Problems reprioritized. Patient report given, questions answered & plan of care reviewed with RIMMA Romano. Patient stable at transfer of care.
--- NOTE | 2018-10-18 19:29 | NUR ---
Patient in room PCU 3023a. I have received report from Liz, RN and RIMMA Amanda and had the opportunity to ask questions and assume patient care. Patient awake for bedside report and stable at this time. 20 G L AC with 100 mL/hr NS infusing per provider order. Will continue to monitor closely.
[2018-10-18] MEDS: atorvastatin 20mg tablet PO SCH (20:50)
[2018-10-18] MEDS: mirtazapine 15mg tablet PO SCH (20:51)
[2018-10-19] MEDS: normal saline 1000ml 1,000 ML IV SCH ×2 (01:52→13:10)
[2018-10-19 03:00] VITALS: BP 105/63
[2018-10-19] MEDS: ipratropium 0.5 MG/2.5ML nebule IH SCH ×4 (03:46→16:00)
[2018-10-19] MEDS: HYDROcodone/acetaminophen 10/325mg tab PO PRN ×2 (04:04→12:12)
[2018-10-19 05:32] LABS: ALBUMIN 2.7 G/DL (3.4-5.0); ANION GAP 3 (8-16); BLOOD UREA NITROGEN 6 MG/DL (7-18); BUN/CREATININE RATIO 8.7 (5.4-32.0); CALCIUM 8.2 MG/DL (8.5-10.1); CHLORIDE 104 MMOL/L (99-107); CREATININE 0.69 MG/DL (0.60-1.10); GLUCOSE 86 MG/DL (70-104); POTASSIUM 4.1 MMOL/L (3.5-5.1); SODIUM 136 MMOL/L (135-145); TOTAL CARBON DIOXIDE 28.6 MMOL/L (24-32); eGFR > 90 ML/MIN
[2018-10-19 05:42] LABS: EOSINOPHILS # (AUTO) 0.2 X10'3 (0-0.9); HEMATOCRIT 35.3 % (42.0-52.0); HEMOGLOBIN 11.9 g/dl (14.0-17.9); LYMPHOCYTES # (AUTO) 1.3 X10'3 (1.1-4.8); LYMPHOCYTES % (AUTO) 25.4 % (21-51); MEAN CORPUSCULAR HEMOGLOBIN 32.6 PG (27.0-31.0); MEAN CORPUSCULAR HGB CONC 33.7 g/dL (33.0-36.5); MEAN CORPUSCULAR VOLUME 96.8 FL (78-98); MEAN PLATELET VOLUME 7.1 FL (7.4-10.4); MONOCYTES # (AUTO) 0.5 X10'3 (0-0.9); MONOCYTES % (AUTO) 10.2 % (2-12); NEUTROPHILS % (AUTO) 59.4 % (42-75); PLATELET COUNT 357 X10'3 (140-440); RED BLOOD COUNT 3.65 X10'6 (4.70-6.10); RED CELL DISTRIBUTION WIDTH 13.4 % (11.5-14.5)
[2018-10-19 06:00] VITALS: BP 94/64
--- NOTE | 2018-10-19 06:25 | NUR ---
Problems reprioritized. Patient report given, questions answered & plan of care reviewed with Valente RN and RIMMA Storey.
--- NOTE | 2018-10-19 06:33 | NUR ---
Patient in room PCU 3023. I have received report from RIMMA Romano and had the opportunity to ask questions and assume patient care.
[2018-10-19] MEDS: pantoprazole 40mg Tablet.DR PO SCH (07:34)
[2018-10-19] MEDS: aspirin 325mg tablet PO SCH (07:34)
[2018-10-19] MEDS: metoprolol succinate 25mg (24-HOUR) SR. Tablet PO SCH (07:35)
[2018-10-19] MEDS: heparin, porcine 5000 units/ml vial SQ SCH (07:36)
[2018-10-19] MEDS: lisinopril 10 MG tablet PO SCH (07:36)
[2018-10-19] MEDS: budesonide 0.5mg/2ml UD nebule IH SCH (08:24)
[2018-10-19 11:00] VITALS: BP 136/80
[2018-10-19 15:00] VITALS: BP 116/73
--- NOTE | 2018-10-19 16:31 | NUR ---
Called report to ANGEL Stone at [facility].
--- NOTE | 2018-10-19 17:31 | NUR ---
PT MISSED 1500 TX RT WITH CRITICAL PT IN PACU Addendum: 10/19/18 at 1732 by Lynsey Lam RT Amended: Links added.
--- NOTE | 2018-10-19 17:47 | NUR ---
Discharged to [facility], picked up by P.CMonique ZENDEJAS and tele out. Stable for transfer per MD.
== END 2018-10-19 17:55 ==
LOC: ER 06:43 → PCU 3S 11:40 → CMPBEDREQ 19:43
PROVIDERS: ADMIT Family Medicine; ATTEND Family Medicine
DX: R07.89 Other chest pain (principal); I10 Essential (primary) hypertension; E78.5 Hyperlipidemia, unspecified; J44.9 Chronic obstructive pulmonary disease, unspecified; I48.91 Unspecified atrial fibrillation; K20.9 Esophagitis, unspecified; E87.1 Hypo-osmolality and hyponatremia
CPT/HCPCS: 36415; 71045; 71275; 78452; 80048; 80053; 83735; 83880; 84484; 85025; 85379; 87081; 93005; 93017; 93306; 94640; 94760; 96372; 96374; 99284; A9500; G0378; J1644; J2270; J2785; J7030; J7611; Q9967; J7626

== ENCOUNTER 2019-07-30 14:33 | Inpatient (IN) | payer OTHER ==
[~2019-07-30] VITALS: Ht 182.9 cm; Wt 90.0 kg
[~2019-07-30 14:33] MED LIST changes: +ACET250T3 PO; +ALB0.5UD IH; -ALBU8.5H8 IH; +ATR0.5NEB IH; +BUDE0.5A3 IH; -BUDE10.2 INH; -LISI10TA4 PO; -METO-384 PO; +METO-395 PO; -PRIM50TA PO; +PRIM50TA27 PO; +SIMV-45 PO; -SIMV40TA4 PO; +ZAR2.5T PO
[2019-07-30] MEDS ORDERED: ipratropium/albuterol 3ml nebule NEB ONE (15:00)
[2019-07-30 15:10] LABS: BASOPHILS % (AUTO) 0.2 % (0-1); EOSINOPHILS % (AUTO) 0.1 % (0-6); HEMATOCRIT 38.1 % (42.0-52.0); HEMOGLOBIN 13.1 g/dl (14.0-17.9); LYMPHOCYTES # (AUTO) 0.9 X10'3 (1.1-4.8); LYMPHOCYTES % (AUTO) 12.1 % (21-51); MEAN CORPUSCULAR HGB CONC 34.3 g/dL (33.0-36.5); MEAN CORPUSCULAR VOLUME 90.4 FL (78-98); MEAN PLATELET VOLUME 7.4 FL (7.4-10.4); MONOCYTES # (AUTO) 0.5 X10'3 (0-0.9); MONOCYTES % (AUTO) 7.1 % (2-12); NEUTROPHILS # (AUTO) 5.9 X10'3 (1.8-7.7); NEUTROPHILS % (AUTO) 80.5 % (42-75); PLATELET COUNT 204 X10'3 (140-440); RED BLOOD COUNT 4.22 X10'6 (4.70-6.10); RED CELL DISTRIBUTION WIDTH 13.9 % (11.5-14.5); WHITE BLOOD COUNT 7.3 X10'3 (4.5-11.0)
[2019-07-30 15:24] LABS: ALANINE AMINOTRANSFERASE 38 U/L (12-78); ALBUMIN 3.3 G/DL (3.4-5.0); ALKALINE PHOSPHATASE 94 IU/L (46-116); ANION GAP 2 (8-16); ASPARTATE AMINO TRANSFERASE 39 U/L (10-37); BILIRUBIN,TOTAL 0.7 MG/DL (0.1-1.0); BLOOD UREA NITROGEN 16 MG/DL (7-18); BUN/CREATININE RATIO 14.8 (5.4-32.0); CALCIUM 7.9 MG/DL (8.5-10.1); CHLORIDE 75 MMOL/L (99-107); CREATININE 1.08 MG/DL (0.60-1.10); GLUCOSE 107 MG/DL (70-104); TOTAL CARBON DIOXIDE 36.8 MMOL/L (24-32); TOTAL PROTEIN 6.6 G/DL (6.4-8.2); eGFR 70 ML/MIN
[2019-07-30 15:25] LABS: SODIUM 114 MMOL/L (135-145)
[2019-07-30 15:26] LABS: POTASSIUM 2.7 MMOL/L (3.5-5.1)
[2019-07-30] MEDS ORDERED: normal saline 1000ml 1,000 ML IV SCH (16:07)
[2019-07-30] MEDS ORDERED: potassium chloride 10mEq ER tablet PO STA (16:07)
[2019-07-30] MEDS ORDERED: TOLVAPTAN 30 MG TABLET PO ONE (16:50)
[2019-07-30 16:56] LABS: ABG BASE EXCESS 5.8 mmol/L (-2.0-3.0); ABG HCO3 29.2 mmol/L (22.0-26.0); ABG OXYGEN SATURATION 92.2 % (95-98); ABG PH (T) 7.503 (7.350-7.450); ABG PO2 (T) 60.6 mmHg (83-108); ALLEN'S TEST POSITIVE; FCOHb 0.5 % (0.5-1.5); FMetHb 0.2 % (0.3-1.12); FO2Hb 91.6 % (94-100); TOTAL HEMOGLOBIN 13.9 G/dl (14.0-17.9)
--- NOTE | 2019-07-30 17:03 | NUR ---
called pharmacy, they care brining rickie down
[2019-07-30] MEDS ORDERED: potassium CL 10mEq/100ml bag 100 ML IV PRN ×2 (17:05)
[2019-07-30] MEDS ORDERED: magnesium 2GM in 50ml NS 50 ML IV PRN (17:05)
[2019-07-30] MEDS ORDERED: magnesium 4gm in 100ml NS 100 ML IV PRN (17:05)
[2019-07-30] MEDS ORDERED: acetaminophen 325mg tablet PO PRN ×2 (17:05)
[2019-07-30] MEDS ORDERED: mag hydrox/Alum hydrox/simeth 30ml oral suspension PO PRN (17:05)
[2019-07-30] MEDS ORDERED: magnesium Cl slow-release 64mg tablet PO PRN (17:05)
[2019-07-30] MEDS ORDERED: potassium Cl 20mEq in NS 1,000 ML IV SCH (17:05)
[2019-07-30] MEDS ORDERED: morphine 2 MG/ML inj. syringe IV PRN ×2 (17:05)
[2019-07-30] MEDS ORDERED: HYDROcodone/acetaminophen 5mg/325mg tablet PO PRN (17:05)
[2019-07-30] MEDS ORDERED: potassium Cl 20 mEq SR tablet PO PRN (17:05)
[2019-07-30] MEDS ORDERED: HYDROcodone/acetaminophen 10/325mg tab PO PRN (17:05)
[2019-07-30] MEDS ORDERED: ondansetron/PF 4mg/2ml inj IV PRN (17:05)
[2019-07-30] MEDS ORDERED: magnesium hydroxide 30ml (MOM) UD suspension PO PRN (17:05)
[2019-07-30 19:04] LABS: MAGNESIUM 1.7 MG/DL (1.5-2.4)
--- NOTE | 2019-07-30 19:07 | NUR ---
Patient in room ED 12. I have received report from Brandon SHANKS and had the opportunity to ask questions and awaiting arrival of patient to the PCU unit.
--- NOTE | 2019-07-30 19:25 | NUR ---
Patient arrived to the PCU unit at this time from the ED. He is alert and oriented and able to make his needs known. He was able to ambulate from the gurney to the bed with standby assistance and no issues. He is on 3 liters oxygen nasal cannula which is what he wears at home and he is sating WNL. Vitals are stable except he is somewhat hypotensive with BP of 88/53 with a MAP of 65 but he is asymptomatic and per the patient this is better than what is was earlier and about what he has been for the last several days. He denies any pain. He has NS with 20 mEq K going at this time and K will continue to be replaced PO as well per the protocol. Dinner tray ordered from dietary. Will continue to monitor.
[2019-07-30 19:30] VITALS: BP 88/53
[2019-07-30 19:48] LABS: PHOSPHORUS 2.1 MG/DL (2.3-4.5)
[2019-07-30] MEDS ORDERED: dextrose 5%-water 1,000 ML IV SCH (19:55)
--- NOTE | 2019-07-30 19:56 | NUR ---
Spoke with February RN TELEPHONIC regarding patient's Na coming up to 121 from 114 in a little over [address] Early indicated in his note that he did not want it to come up this rapidly and his goal is to just have it reach 124 by the morning. NS with K is going to be discontinued and D5W will be started instead and his Potassium will just be replaced PO per the protocol.
[2019-07-30 20:00] VITALS: BP_SYST 84; BP_SYST 91; BP_SYST 95; BP_DIAS 60; BP_DIAS 62
[2019-07-30] MEDS: K and/or MAG REPLACEMENT MC SCH (20:00)
[2019-07-30] MEDS: methylPREDNISolone sod succ 125mg/2ml vial IV SCH (20:05)
--- NOTE | 2019-07-30 20:26 | NUR ---
PAGER ID: [phone] MESSAGE: Patient José Luis Wheeler Rm [id number] FYI patient's K came back 3.0 but this is up from 2.7 in the ED and replacement protocol is ordered so will continues to replace per the protocol. Thanks. Katelyn SHANKS ext. [phone]
[2019-07-30] MEDS ORDERED: Neutra Phos packet PO PRN (20:40)
[2019-07-30] MEDS: potassium Cl 20 mEq SR tablet PO PRN (20:58)
[2019-07-30] MEDS: ipratropium/albuterol 3ml nebule NEB PRN (21:06)
[2019-07-30 23:00] VITALS: BP_SYST 82; BP_SYST 84; BP_DIAS 52; BP_DIAS 60
[2019-07-31] VITALS (7 sets, daily range): BP systolic 83–106; BP diastolic 51–87
[2019-07-31] MEDS: potassium Cl 20 mEq SR tablet PO PRN (01:00)
[2019-07-31] MEDS: methylPREDNISolone sod succ 125mg/2ml vial IV SCH ×4 (01:25→19:57)
[2019-07-31 03:21] LABS: BASOPHILS % (AUTO) 0 % (0-1); EOSINOPHILS % (AUTO) 0.1 % (0-6); HEMOGLOBIN 12.4 g/dl (14.0-17.9); LYMPHOCYTES # (AUTO) 0.3 X10'3 (1.1-4.8); LYMPHOCYTES % (AUTO) 5.3 % (21-51); MEAN CORPUSCULAR HEMOGLOBIN 30.5 PG (27.0-31.0); MEAN CORPUSCULAR HGB CONC 33.4 g/dL (33.0-36.5); MEAN CORPUSCULAR VOLUME 91.3 FL (78-98); MEAN PLATELET VOLUME 7.3 FL (7.4-10.4); MONOCYTES # (AUTO) 0.1 X10'3 (0-0.9); NEUTROPHILS # (AUTO) 5.6 X10'3 (1.8-7.7); NEUTROPHILS % (AUTO) 93.6 % (42-75); PLATELET COUNT 203 X10'3 (140-440); RED BLOOD COUNT 4.06 X10'6 (4.70-6.10); RED CELL DISTRIBUTION WIDTH 13.6 % (11.5-14.5)
[2019-07-31 03:34] LABS: ALBUMIN 2.9 G/DL (3.4-5.0); ANION GAP 4 (8-16); BLOOD UREA NITROGEN 15 MG/DL (7-18); BUN/CREATININE RATIO 16.3 (5.4-32.0); CALCIUM 9.2 MG/DL (8.5-10.1); CHLORIDE 83 MMOL/L (99-107); CREATININE 0.92 MG/DL (0.60-1.10); GLUCOSE 145 MG/DL (70-104); PHOSPHORUS 2.7 MG/DL (2.3-4.5); POTASSIUM 3.7 MMOL/L (3.5-5.1); SODIUM 121 MMOL/L (135-145); eGFR 84 ML/MIN
[2019-07-31 06:22] LABS: OSMOLALITY UA 190 MOSM/K (50-1400)
--- NOTE | 2019-07-31 06:24 | NUR ---
Problems reprioritized. Patient report given, questions answered & plan of care reviewed with Nuris SHANKS.
[2019-07-31 06:26] LABS: SODIUM,URINE RANDOM < 15 MEQ/L
--- NOTE | 2019-07-31 06:26 | NUR ---
Patient in room U 3014. I have received report from Katelyn SHANKS and had the opportunity to ask questions and assume patient care. Addendum: 07/31/19 at 1334 by Maeve BLANK Initiated new IV @ 1328 on right forearm 20g with 1 attempt, pt tolerated well.
[2019-07-31] MEDS: enoxaparin 40mg/0.4ml syringe SUBCUT SCH (07:45)
[2019-07-31] MEDS: K and/or MAG REPLACEMENT MC SCH ×2 (08:00→20:00)
[2019-07-31] MEDS: ipratropium/albuterol 3ml nebule NEB PRN (08:22)
[2019-07-31] MEDS: normal saline 1000ml 1,000 ML IV SCH ×2 (09:19→22:15)
[2019-07-31] MEDS ORDERED: LISI-600 PO (09:42)
[2019-07-31] MEDS ORDERED: SIMV-45 PO (09:42)
[2019-07-31] MEDS ORDERED: MIRT45TA79 PO (09:42)
[2019-07-31] MEDS ORDERED: METO-411 PO (09:42)
[2019-07-31] MEDS ORDERED: IPRA3AMP31 IH (09:42)
[2019-07-31] MEDS ORDERED: BUDE10.2 INH (09:42)
[2019-07-31] MEDS ORDERED: PRIM50TA27 PO (09:42)
--- NOTE | 2019-07-31 14:23 | NUR ---
Sent a page to Dr Quan regarding pt c/o urinary retention/distention, will continue to monitor the patient closely. PAGER ID: [phone] MESSAGE: Nuris SHANKS [phone] Brigida Wheeler, pt c/o urinary retention, bladder scan >750ml, can i have an order for straight cath? thanks!
--- NOTE | 2019-07-31 15:12 | NUR ---
Malnutrition consult. Pt has h/o COPD and chronic hypoxemic respiratory failure, DLD, HTN. Admitted with weakness, hypokalemia, hyponatremia. Weight last September 95.45 kg, weight this admission 90 kg (6% less in 10 months). No significant wt loss. Weight in May 112 kg with severe 4+ and 3+ edema, increase in wt at that time likely r/t fluids. Did have BLE 2+ mild edema on admit however now documented with no edema or significant decrease in muscle strength per physical assessment. Pt consumed 100% of milk at breakfast and 100% of meal at lunch. Pt historically with 75-100% PO intake during admits. Pt appears well developed, well nourished per ED report. Pt currently lacks a minimum of two criteria for malnutrition. Will continue to follow. Addendum: 07/31/19 at [address] Amended: Links added.
--- NOTE | 2019-07-31 17:10 | NUR ---
Patient in room PCU 3014. I have received report from Nuris SHANKS and had the opportunity to ask questions and assume patient care.
--- NOTE | 2019-07-31 17:10 | NUR ---
Problems reprioritized. Patient report given, questions answered & plan of care reviewed with Maeve SHANKS.
--- NOTE | 2019-07-31 17:45 | NUR ---
Patient arrived to floor via wheelchair. Patients IV connected and started on IV pump. Patient was oriented to the room, bed low call light in reach.
--- NOTE | 2019-07-31 18:42 | NUR ---
Problems reprioritized. Patient report given, questions answered & plan of care reviewed with Felix SHANKS.
[2019-08-01 00:09] VITALS: BP 107/75
[2019-08-01] MEDS: normal saline 1000ml 1,000 ML IV SCH (00:27)
[2019-08-01] MEDS: methylPREDNISolone sod succ 125mg/2ml vial IV SCH ×2 (02:11→07:59)
[2019-08-01 03:44] LABS: BASOPHILS % (AUTO) 0.1 % (0-1); EOSINOPHILS % (AUTO) 0 % (0-6); HEMOGLOBIN 11.9 g/dl (14.0-17.9); LYMPHOCYTES # (AUTO) 0.5 X10'3 (1.1-4.8); LYMPHOCYTES % (AUTO) 5.4 % (21-51); MEAN CORPUSCULAR HEMOGLOBIN 30.3 PG (27.0-31.0); MEAN CORPUSCULAR HGB CONC 33.1 g/dL (33.0-36.5); MEAN CORPUSCULAR VOLUME 91.7 FL (78-98); MEAN PLATELET VOLUME 7.2 FL (7.4-10.4); MONOCYTES # (AUTO) 0.3 X10'3 (0-0.9); MONOCYTES % (AUTO) 3.9 % (2-12); NEUTROPHILS % (AUTO) 90.6 % (42-75); PLATELET COUNT 221 X10'3 (140-440); RED BLOOD COUNT 3.92 X10'6 (4.70-6.10); RED CELL DISTRIBUTION WIDTH 14.6 % (11.5-14.5); WHITE BLOOD COUNT 8.8 X10'3 (4.5-11.0)
[2019-08-01 03:52] LABS: ALBUMIN 2.8 G/DL (3.4-5.0); ANION GAP 2 (8-16); BLOOD UREA NITROGEN 14 MG/DL (7-18); BUN/CREATININE RATIO 22.2 (5.4-32.0); CHLORIDE 92 MMOL/L (99-107); CREATININE 0.63 MG/DL (0.60-1.10); GLUCOSE 139 MG/DL (70-104); MAGNESIUM 2.1 MG/DL (1.5-2.4); PHOSPHORUS 2.9 MG/DL (2.3-4.5); POTASSIUM 4.2 MMOL/L (3.5-5.1); SODIUM 128 MMOL/L (135-145); TOTAL CARBON DIOXIDE 34.2 MMOL/L (24-32); eGFR > 90 ML/MIN
--- NOTE | 2019-08-01 06:25 | NUR ---
Patient in room AUGUST 346. I have received report from RIMMA PEÑALOZA and had the opportunity to ask questions and assume patient care.
[2019-08-01 07:00] VITALS: BP 101/72
[2019-08-01] MEDS: enoxaparin 40mg/0.4ml syringe SUBCUT SCH (07:56)
[2019-08-01 08:00] VITALS: BP_SYST 100; BP_SYST 104; BP_DIAS 60; BP_DIAS 69
[2019-08-01] MEDS: K and/or MAG REPLACEMENT MC SCH ×2 (08:00→20:00)
[2019-08-01] MEDS: ipratropium/albuterol 3ml nebule NEB PRN ×3 (10:40→20:15)
[2019-08-01 11:00] VITALS: BP 102/69
--- NOTE | 2019-08-01 18:33 | NUR ---
Problems reprioritized. Patient report given, questions answered & plan of care reviewed with RIMMA PEÑALOZA.
[2019-08-01 19:53] VITALS: BP 94/62
[2019-08-02] VITALS: BP 100/60
[2019-08-02 05:32] LABS: BASOPHILS % (AUTO) 0.1 % (0-1); EOSINOPHILS % (AUTO) 0.2 % (0-6); HEMATOCRIT 35.9 % (42.0-52.0); LYMPHOCYTES # (AUTO) 1.3 X10'3 (1.1-4.8); LYMPHOCYTES % (AUTO) 15.3 % (21-51); MEAN CORPUSCULAR HEMOGLOBIN 31.1 PG (27.0-31.0); MEAN CORPUSCULAR HGB CONC 33.4 g/dL (33.0-36.5); MEAN CORPUSCULAR VOLUME 93.3 FL (78-98); MONOCYTES # (AUTO) 0.9 X10'3 (0-0.9); MONOCYTES % (AUTO) 10.6 % (2-12); NEUTROPHILS # (AUTO) 6.2 X10'3 (1.8-7.7); NEUTROPHILS % (AUTO) 73.8 % (42-75); PLATELET COUNT 223 X10'3 (140-440); RED BLOOD COUNT 3.85 X10'6 (4.70-6.10); RED CELL DISTRIBUTION WIDTH 14.1 % (11.5-14.5); WHITE BLOOD COUNT 8.4 X10'3 (4.5-11.0)
[2019-08-02 05:51] LABS: ALBUMIN 2.9 G/DL (3.4-5.0); ANION GAP 2 (8-16); BLOOD UREA NITROGEN 14 MG/DL (7-18); BUN/CREATININE RATIO 19.2 (5.4-32.0); CALCIUM 8.4 MG/DL (8.5-10.1); CHLORIDE 94 MMOL/L (99-107); CREATININE 0.73 MG/DL (0.60-1.10); GLUCOSE 89 MG/DL (70-104); MAGNESIUM 1.9 MG/DL (1.5-2.4); PHOSPHORUS 3.1 MG/DL (2.3-4.5); POTASSIUM 3.8 MMOL/L (3.5-5.1); SODIUM 132 MMOL/L (135-145); TOTAL CARBON DIOXIDE 36.5 MMOL/L (24-32); eGFR > 90 ML/MIN
--- NOTE | 2019-08-02 07:49 | NUR ---
Patient in room AUGUST 346. I have received report from RIMMA [place] and had the opportunity to ask questions and assume patient care.
[2019-08-02 08:00] VITALS: BP 94/62
[2019-08-02] MEDS: K and/or MAG REPLACEMENT MC SCH ×2 (08:00→20:00)
[2019-08-02] MEDS: predniSONE 20 mg tablet PO SCH (09:46)
[2019-08-02] MEDS: enoxaparin 40mg/0.4ml syringe SUBCUT SCH (09:46)
[2019-08-02] MEDS: furosemide 40mg tablet PO SCH (11:29)
[2019-08-02 12:00] VITALS: BP 90/62
[2019-08-02] MEDS: ipratropium/albuterol 3ml nebule NEB PRN ×2 (16:02→19:59)
[2019-08-02 18:00] VITALS: BP 107/68
[2019-08-03] VITALS: BP_SYST 104; BP_SYST 105; BP_SYST 93; BP_DIAS 60; BP_DIAS 72; BP_DIAS 76
[2019-08-03 05:42] LABS: BASOPHILS % (AUTO) 0.3 % (0-1); EOSINOPHILS # (AUTO) 0.1 X10'3 (0-0.9); EOSINOPHILS % (AUTO) 0.8 % (0-6); HEMATOCRIT 36.6 % (42.0-52.0); HEMOGLOBIN 12.2 g/dl (14.0-17.9); LYMPHOCYTES # (AUTO) 1.5 X10'3 (1.1-4.8); LYMPHOCYTES % (AUTO) 19.8 % (21-51); MEAN CORPUSCULAR HEMOGLOBIN 31.4 PG (27.0-31.0); MEAN CORPUSCULAR HGB CONC 33.4 g/dL (33.0-36.5); MEAN PLATELET VOLUME 6.8 FL (7.4-10.4); MONOCYTES # (AUTO) 0.8 X10'3 (0-0.9); MONOCYTES % (AUTO) 9.9 % (2-12); NEUTROPHILS # (AUTO) 5.4 X10'3 (1.8-7.7); NEUTROPHILS % (AUTO) 69.2 % (42-75); PLATELET COUNT 236 X10'3 (140-440); RED CELL DISTRIBUTION WIDTH 14.4 % (11.5-14.5); WHITE BLOOD COUNT 7.8 X10'3 (4.5-11.0)
[2019-08-03 05:55] LABS: ALBUMIN 2.9 G/DL (3.4-5.0); ANION GAP 0 (8-16); BLOOD UREA NITROGEN 16 MG/DL (7-18); BUN/CREATININE RATIO 20.3 (5.4-32.0); CALCIUM 8.7 MG/DL (8.5-10.1); CHLORIDE 98 MMOL/L (99-107); CREATININE 0.79 MG/DL (0.60-1.10); GLUCOSE 95 MG/DL (70-104); MAGNESIUM 1.8 MG/DL (1.5-2.4); PHOSPHORUS 4.2 MG/DL (2.3-4.5); POTASSIUM 4.7 MMOL/L (3.5-5.1); SODIUM 136 MMOL/L (135-145); eGFR > 90 ML/MIN
[2019-08-03 08:00] VITALS: BP_SYST 109; BP_SYST 112; BP_SYST 119; BP_DIAS 71; BP_DIAS 73; BP_DIAS 75
[2019-08-03] MEDS: K and/or MAG REPLACEMENT MC SCH ×2 (08:00→20:00)
[2019-08-03] MEDS: furosemide 40mg tablet PO SCH (08:04)
[2019-08-03] MEDS: predniSONE 20 mg tablet PO SCH (08:05)
[2019-08-03] MEDS: enoxaparin 40mg/0.4ml syringe SUBCUT SCH (08:06)
[2019-08-03] MEDS: ipratropium/albuterol 3ml nebule NEB PRN ×3 (09:11→23:38)
[2019-08-03 12:00] VITALS: BP 112/73
--- NOTE | 2019-08-03 17:34 | NUR ---
Pt has D/C orders per DR Rajan. caregiver services home have been waiting on [facility] pt's [facility].
--- NOTE | 2019-08-03 18:51 | NUR ---
Problems reprioritized. Patient report given, questions answered & plan of care reviewed with RIMMA Martinez. Pt resting in bed. unable to be D/C'd today.
[2019-08-03 19:00] VITALS: BP_SYST 115; BP_SYST 119; BP_DIAS 81; BP_DIAS 84
[2019-08-04] VITALS: BP 115/81
[2019-08-04 04:56] LABS: BASOPHILS % (AUTO) 0.3 % (0-1); EOSINOPHILS # (AUTO) 0.1 X10'3 (0-0.9); EOSINOPHILS % (AUTO) 1.3 % (0-6); HEMATOCRIT 37.7 % (42.0-52.0); HEMOGLOBIN 12.4 g/dl (14.0-17.9); LYMPHOCYTES # (AUTO) 1.9 X10'3 (1.1-4.8); LYMPHOCYTES % (AUTO) 23.9 % (21-51); MEAN CORPUSCULAR HEMOGLOBIN 30.5 PG (27.0-31.0); MEAN CORPUSCULAR HGB CONC 32.8 g/dL (33.0-36.5); MEAN CORPUSCULAR VOLUME 93.2 FL (78-98); MEAN PLATELET VOLUME 6.7 FL (7.4-10.4); MONOCYTES % (AUTO) 12.3 % (2-12); NEUTROPHILS % (AUTO) 62.2 % (42-75); PLATELET COUNT 252 X10'3 (140-440); RED BLOOD COUNT 4.05 X10'6 (4.70-6.10); RED CELL DISTRIBUTION WIDTH 14.6 % (11.5-14.5)
[2019-08-04 05:03] LABS: ALBUMIN 2.9 G/DL (3.4-5.0); ANION GAP -2 (8-16); BLOOD UREA NITROGEN 15 MG/DL (7-18); BUN/CREATININE RATIO 16.7 (5.4-32.0); CALCIUM 8.7 MG/DL (8.5-10.1); CHLORIDE 98 MMOL/L (99-107); GLUCOSE 101 MG/DL (70-104); MAGNESIUM 1.7 MG/DL (1.5-2.4); PHOSPHORUS 4.6 MG/DL (2.3-4.5); POTASSIUM 4.6 MMOL/L (3.5-5.1); SODIUM 135 MMOL/L (135-145); TOTAL CARBON DIOXIDE 38.7 MMOL/L (24-32); eGFR 87 ML/MIN
--- NOTE | 2019-08-04 06:46 | NUR ---
Patient in room AUGUST 346. I have received report from RIMMA MOORE and had the opportunity to ask questions and assume patient care.
[2019-08-04 07:00] VITALS: BP 103/72
[2019-08-04] MEDS: K and/or MAG REPLACEMENT MC SCH (07:41)
[2019-08-04] MEDS: predniSONE 20 mg tablet PO SCH (07:54)
[2019-08-04] MEDS: furosemide 40mg tablet PO SCH (07:54)
[2019-08-04] MEDS: enoxaparin 40mg/0.4ml syringe SUBCUT SCH (07:55)
[2019-08-04 11:00] VITALS: BP 106/70
[2019-08-04] MEDS ORDERED: PRED20TA PO (13:39)
--- NOTE | 2019-08-04 16:54 | NUR ---
PATIENT STABLE AND APPROPRIATE FOR DISCHARGE, EDUCATION GIVEN, ALL BELONGINGS SENT WITH PATIENT, MEDS CALLED IN TO PREFERRED PHARMACY, PATIENT TAKEN DOWN TO LOBBY IN WHEELCHAIR TO AN AWAITING CAR WHERE FAMILY MEMBER WILL TAKE PATIENT HOME
== END 2019-08-04 16:57 | disposition home health service (06) | DRG 191 ==
LOC: ER 14:33 → ED HOLD 17:05 → PCU 3S 19:25 → SUR 3N 07-31 17:17
PROVIDERS: ADMIT Internal Medicine; ATTEND Family Medicine
DX: J44.1 Chronic obstructive pulmonary disease with (acute) exacerbation (principal); E87.1 Hypo-osmolality and hyponatremia; J96.11 Chronic respiratory failure with hypoxia; I27.81 Cor pulmonale (chronic); E87.6 Hypokalemia; I11.0 Hypertensive heart disease with heart failure; I48.91 Unspecified atrial fibrillation; E78.00 Pure hypercholesterolemia, unspecified; F10.20 Alcohol dependence, uncomplicated; E78.5 Hyperlipidemia, unspecified; T50.2X5A Adverse effect of carbonic-anhydrase inhibitors, benzothiadiazides and other diuretics, initial encounter; D64.9 Anemia, unspecified; F17.210 Nicotine dependence, cigarettes, uncomplicated; I50.9 Heart failure, unspecified; E66.9 Obesity, unspecified; I95.9 Hypotension, unspecified; Z83.3 Family history of diabetes mellitus; Z68.26 Body mass index [BMI] 26.0-26.9, adult; Z79.899 Other long term (current) drug therapy; Z71.41 Alcohol abuse counseling and surveillance of alcoholic; Y92.89 Other specified places as the place of occurrence of the external cause
CPT/HCPCS: 36415; 36600; 71045; 71250; 76700; 80048; 80053; 82803; 83605; 83735; 83880; 83930; 83935; 84100; 84132; 84295; 84300; 84443; 84484; 85018; 85025; 87040; 87081; 93005; 93306; 94640; 94667; 94668; 94760; 97110; 97161; 97530; 99285; G0378; J1650; J2930; J3480; J7030; J7070; J7512